=== PATIENT | female | born 1985 | race Caucasian/White ===

== ENCOUNTER → 2021-10-28 09:55 | Outpatient (CLI) | payer OTHER, SELFPAY ==
--- NOTE | ~2021-10-28 | US_ITS ---
EXAMINATION: US pelvic complete w TV DATE: 10/28/2021 10:25 INDICATION: Excessive menstruation. Heavy periods. Pain and cramping. Comparison:No prior studies for comparison. TECHNIQUE: Multiple transabdominal and endovaginal sonographic images of the pelvis performed. FINDINGS: The uterus measures 8.8 x 4.7 x 5.7 cm. There is a uterine fibroid measuring 1.9 x 2.1 x 1. 6 cm. The endometrial complex measures 9 mm. The right ovary measures 4.9 x 3.3 x 4.3 cm and the left ovary measures 4.5 x 2.9 x 4 cm. In the left ovary there is a 3.3 cm cyst. In the right ovary there is a 3.2 cm hemorrhagic cyst.. Normal doppler signal in both ovaries. There is no free fluid in the pelvis. There are no abnormal masses seen on either side. IMPRESSION: 1. Hemorrhagic cyst of the right ovary measuring 3.2 cm maximum dimension. 2: Simple cyst of the right ovary measuring 3.2 cm. 3: Uterine fibroid measuring 2.1 cm maximum dimension. Reviewed, dictated and finalized at location A.
== END ==
PROVIDERS: PCP Family Medicine Sports Medicine; Visit Provider Nurse Practitioner
DX: N92.0 Excessive and frequent menstruation with regular cycle (principal); N83.201 Unspecified ovarian cyst, right side; D25.9 Leiomyoma of uterus, unspecified
CPT/HCPCS: 76830; 76856

== ENCOUNTER 2022-04-25 00:34 | Day surgery (SDC) | payer OTHER, SELFPAY ==
[2022-04-12 14:06] VITALS: BMI 21.3
--- NOTE | 2022-04-12 14:09 | SUR.PREOP ---
Report to the Outpatient Waiting Room, entrance under the green pavilion located off [facility], at time 1030 on date 04/25/22. Planned Procedure Time: 1230. Time changes happen often and if your time is changed the preop area will call you the afternoon before. - You and your visitor will be asked to self-screen and do not enter if you have any COVID symptoms. - Only one visitor is requested with a max of two and NO children visitors are allowed at this time. - The patient visitor may be requested to leave or wait in car when not with patient due to distancing restrictions. - A mask is optional within the hospital at this time. Patients may have clear liquids (water, carbonated beverages, clear teas, apple juice) until 3 hours prior to surgery with a maximum of 20 ounces. - No food from midnight until time of surgery 20 OUNCES BEFORE 0930 AM - Infants may have breast milk until 4 hours before surgery, formula 6 hours prior to surgery. - Children will be allowed to drink immediately following surgery. If applicable, please bring a bottle or sippy cup to assist with drinking. Juice, water, soda, and popsicles are readily available. For infants on formula, please bring formula the day of surgery. Pacifiers are allowed. Take the following medications with a SIP of water the morning of surgery: N/A DO NOT STOP ANY OF YOUR OTHER PRESCRIPTION MEDICATIONS PRIOR TO SURGERY ?EXCEPT THE FOLLOWING Medications to discontinue per physician MULTIVITAMIN FOR 3 DAYS PRIOR Date to take last dose Please no make-up, nail italian, hairspray, perfume, deodorant, or body powder the day of surgery. No jewelry (including any body piercings) or valuables the day of surgery, leave them at home. Please take a shower or bath the night before, or the morning of, surgery with an antibacterial soap. Wear comfortable, loose fitting clothing. Children are encouraged to wear pajamas. - Jewelry must be removed prior to entering the operating room. Rings and piercings that are not removed may be cut off. - The hospital will not accept responsibility for valuables. - Please leave all valuables, including medications, at home the day of surgery. If you are going home after surgery, a licensed winch driver must drive you home. - NO public transportation without another adult if you receive anesthesia. - We recommend that an adult stay with you for 24 hours following discharge. - We also recommend that you do not drive, make important decision, drink alcoholic beverages, or take any drugs that were not prescribed by your health care provider for at least 24 hours after your discharge time. For Pediatric surgeries, we recommend two adults accompany the child home. Follow any additional instructions given to you from your surgeon. If you or anyone in your household have experienced Covid symptoms in the past week, please notify your surgeon or the nurse liaison at the phone number below for possible testing. Telephone instructions given to PATIENT and asked if any additional questions and then verbalized understanding. Patient advised to call surgeon office or pre surgery nurse liaison [phone] if any additional questions.
--- NOTE | 2022-04-25 07:32 | WPDHPUPDATE1 ---
History and Physical Update Update Date/Time: 04/25/22 07:32 History and Physical has been reviewed, including an updated exam of the patient. There are NO changes in the patient's condition. Risks, benefits, and alternatives have been discussed and questions answered. Patient agrees to proceed with procedure.
--- NOTE | 2022-04-25 07:32 | PM.HPGS ---
History of Present Illness History of Present Illness Consent: Risks, benefits, and alternatives have been discussed and questions answered. Patient agrees to proceed with procedure. Chief complaint: Menorrhagia, Fibroids Narrative: Bina Garcia is a 37 year old female with worsening menstrual cycles. It was recommended to proceed with D&C hysteroscopy for further evaluation. Patient with known history of fibroids and prior hysteroscopic myomectomy. The risks of infection, bleeding, perforation, and fluid imbalance over reviewed. Possible pathology was discussed. The patient is voicing understanding and agrees to proceed. Review of Systems Review of Systems: not repeated day of surgery; patient states no changes in status PMF[facility] Past Medical History Medical History (Updated 04/25/22 @ 08:00 by Marlyn Brennan MD) History of skin cancer 2020 on her back (normal spontaneous vaginal delivery) Conceived by in vitro fertilization Surgical History Surgical History (Updated 04/25/22 @ 07:35 by Marlyn Brennan MD) History of hysteroscopy with myomectomy, polypectomy History of laparoscopy left tube was previously removed and the right tube was noted to be blocked on laparoscopy Social History Social History Drinks per week: 2 Substance use type: marijuana Living arrangements: with family Meds Home Medications and Allergies Home Medications Medication Instructions Recorded Confirmed Type multivitamin 1 tablet PO DAILY 04/12/22 04/12/22 History valacyclovir 500 mg tablet 500 mg PO DAILY 04/12/22 04/12/22 History Allergies Allergy/AdvReac Type Severity Reaction Status Date / Time No Known Allergies Allergy Unverified 08/03/15 15:43 Exam Const: General: healthy appearing and alert Orientation/consciousness: patient oriented x3 Resp: Effort & Inspection: normal respiratory effort GI: GI Palp: Yes Soft to palpation, No Tenderness to palpation present (GI) and No Palpable mass present : External Female Exam: normal external appearance Speculum Exam - Vagina: normal appearance of the vagina and normal vaginal discharge Speculum Exam - Cervix: normal appearance of the cervix Bimanual exam- vagina & uterus: uterine size normal and consistency normal Bimanual Exam- Adnexa, other: normal adnexae and No adnexal tenderness Neuro: General: patient oriented x3 Assessment and Plan Assessment and plan (1) Menorrhagia: Code(s): N92.0 - Excessive and frequent menstruation with regular cycle Status: Acute Assessment and Plan: plan to proceed with D&C hysteroscopy possible myomectomy
[2022-04-25] MEDS: ACETAMINOPHEN 500 MG TABLET 1000 MG PO (10:45)
[2022-04-25] MEDS: LACTATED RINGERS 1,000 ML 30 ML IV CONT (10:45)
[2022-04-25 11:00] VITALS: BP 125/73; PULSE 73; RESP 16; TEMP 36.4; O2SAT 100
--- NOTE | 2022-04-25 11:15 | P.PNAN_ITS ---
Anes - Initial Pre Proc Eval Procedure: Operation Date: 04/25/22 12:30 Proposed Procedures p Hysteroscopy Dilation and Curettage with Possible Myosure - Marlyn Brennan MD Date/Time: 04/25/22 11:15 Surgeon: Marlyn Brennan MD Pre Op Diagnosis: Menorrhagia, Fibroids Patient Data Age: 37 Gender: F Height: 1.68 m Weight: 62.1 kg Last Vital Signs Temp 36.4 C L 04/25/22 11:00 Pulse 73 04/25/22 11:00 Resp 16 04/25/22 11:00 BP 125/73 04/25/22 11:00 Pulse Ox 100 04/25/22 11:00 O2 Del Method Room Air 04/25/22 11:00 Allergies Allergy/AdvReac Type Severity Reaction Status Date / Time No Known Allergies Allergy Unverified 04/25/22 11:08 Home Medications Medication Instructions Recorded Confirmed Type multivitamin 1 tablet PO DAILY 04/12/22 04/25/22 History valacyclovir 500 mg tablet 500 mg PO DAILY 04/12/22 04/25/22 History Patient hx anesthesia problems: none Family hx anesthesia problems: none Results Review: All pre-operative results and documents have been reviewed as part of the pre- operative evaluation. [facility] Past Medical History Medical History History of skin cancer 2020 on her back (normal spontaneous vaginal delivery) Conceived by in vitro fertilization Surgical History Surgical History History of hysteroscopy with myomectomy, polypectomy History of laparoscopy left tube was previously removed and the right tube was noted to be blocked on laparoscopy Social History Social History Drinks per week: 2 Substance use type: marijuana Living arrangements: with family Anes - Eval Final PreProcedure Day of Procedure 04/25/22 11:15 Patient weight: normal Heart: regular rate and rhythm Lungs: clear to auscultation Airway: Mallampati scale class II Neurological: alert and oriented Last oral intake: >/= 8 hours ASA classification: II Emergent: no Anesthetic plan: proceed Anesthesia type and monitoring: general GIVS and standard monitoring Results Review: All pre-operative results and documents have been reviewed as part of the pre- operative evaluation. Informed Consent: The patient's anesthetic plan and its attendant risks and benefits were discussed with the patient/family/POA. Questions were solicited and answers provided to the satisfaction of the patient/family/POA.
[2022-04-25] MEDS: LIDOCAINE HCL 1% LOCAL INJ 20 ML VIAL 10 ML INFILTRATE (12:39)
--- NOTE | 2022-04-25 12:45 | P.OP_ITS ---
Procedure Note - Detailed Date of Procedure 04/25/22 Pre-op Diagnosis Menorrhagia, Fibroids Post-op Diagnosis Same Procedure Performed D and C hysteroscopy Surgeon Marlyn Brennan MD Anesthesia MAC and Local Findings uterus sounds to 8cm and appears grossly normal Description of Procedure The patient is taken to the operating room and placed under anesthesia in the dorsal lithotomy position. She was prepped and draped in the usual sterile fashion. [place] speculum was placed in the vagina and the cervix grasped on the anterior lip with a tenaculum. Cervix is injected in each quadrant with 1% lidocaine. The uterus is sounded to 8cm. The cervix is serially dilated to a 6 Hegar and the large Aveeta hysteroscope was placed. Initially it appeared as if submucosal fibroid posterior however when the pressure was increased the wall flattened out completely. The hysteroscope was removed and the sharp curette used to curette the endometrium until a good uterine cry was noted in all areas. All instruments are removed. Sponge, needle, and instrument counts are correct per the OR staff. Patient is awakened from anesthesia and taken to recovery in stable condition. Estimated Blood Loss 5 Drains No Packing No Pathology Yes ( endometrial curettings) Complications No immediate complications Condition Stable Disposition PACU
[2022-04-25 12:46] VITALS: BP 114/77; PULSE 67; RESP 14; O2SAT 99
[2022-04-25] MEDS: oxyCODONE HCL (*CRX) 5 MG TAB IR PO (13:12)
[2022-04-25 13:15] VITALS: BP 130/83; PULSE 66; RESP 14
== END 2022-04-25 13:42 | disposition home or self-care (01) ==
PROVIDERS: PCP Family Medicine Sports Medicine; Visit Provider Obstetrics & Gynecology Gynecology
PROC: 0U5B8ZZ Destruction of Endometrium, Via Natural or Artificial Opening Endoscopic (ICD-10-PCS; CPT 58563; principal; 2022-04-25 12:30)
DX: N92.0 Excessive and frequent menstruation with regular cycle (principal); F12.90 Cannabis use, unspecified, uncomplicated
CPT/HCPCS: 58558; 88305; A9270; J2250; J2704; J3010; J7120

== ENCOUNTER 2023-06-05 12:09 | Outpatient (CLI) | payer OTHER, SELFPAY ==
--- NOTE | ~2023-06-05 | MM_ITS ---
EXAMINATION: MM screening sunni BI w ria HISTORY: Screening mammogram TECHNIQUE: Craniocaudal and mediolateral oblique 3-D tomosynthesis images were obtained and synthetic 2-D images were generated. CAD analysis was submitted and interpreted. COMPARISON: No prior mammogram is available for comparison at this institution. BREAST PARENCHYMAL COMPOSITION: The breasts are heterogeneously dense, which may obscure small masses . FINDINGS: There is asymmetry in the upper right breast on MLO view. Since this is a baseline examinat ion with no prior examinations for comparison, diagnostic right mammogram is recommended, and ultraso und if required. Otherwise no suspicious mass, architectural distortion, malignant calcification, skin thickening or r etraction of either breast is evident. IMPRESSION: 1. Asymmetry in upper right breast on this baseline screening MLO view 2. Recommend diagnostic right mammogram, with ultrasound if required BI-RADS Category 0: Incomplete: Needs additional imaging evaluation. Reviewed, dictated and finalized at location A.
== END 2023-06-05 12:10 | disposition home or self-care (01) ==
PROVIDERS: PCP Family Medicine Sports Medicine; Visit Provider Obstetrics & Gynecology Gynecology
DX: Z12.31 Encounter for screening mammogram for malignant neoplasm of breast (principal); R92.8 Other abnormal and inconclusive findings on diagnostic imaging of breast
CPT/HCPCS: 77063; 77067

== ENCOUNTER 2023-06-15 09:18 | Outpatient (CLI) | payer OTHER, SELFPAY ==
--- NOTE | ~2023-06-15 | MM_ITS ---
EXAMINATION: MM diagnostic sunni RT w ria HISTORY: Upper right breast asymmetry TECHNIQUE: 3-D tomosynovitis compression view of the upper right breast was performed and synthetic 2 -D images were generated. CAD analysis was submitted and interpreted. COMPARISON: 06/05/2023 FINDINGS: The asymmetry at the upper right breast effaces with spot compression. No persistent mass l esion or distortion seen. No suspicious microcalcification. IMPRESSION: No mammographic evidence of malignancy. BI-RADS Category 1: Negative Reviewed, dictated and finalized at location M.
== END 2023-06-15 09:19 | disposition home or self-care (01) ==
LOC: CHSIMG 09:22
PROVIDERS: PCP Family Medicine Sports Medicine; Visit Provider Obstetrics & Gynecology Gynecology
DX: R92.8 Other abnormal and inconclusive findings on diagnostic imaging of breast (principal)
CPT/HCPCS: 77061; 77065; G0279

== ENCOUNTER 2023-11-15 10:20 | Outpatient (CLI) | payer OTHER, SELFPAY ==
--- NOTE | ~2023-11-15 | US_ITS ---
Pelvic ultrasound. Clinical History: Excessive and frequent menstruation Technique: Realtime transabdominal scanning of the pelvis was performed. Color flow Doppler and Doppl er spectral analysis were performed. Findings: The uterus is anteverted. The endometrial stripe has a thickness of 6 mm. Probable ill-def ined intramural fibroid measures 1.9 cm in maximum diameter on the left side. The right ovary measures 2.5 x 2.2 x 1.1 cm. No significant right ovarian or adnexal mass is seen. The left ovary measures 4.6 x 3.1 x 4.6 cm. Simple left ovarian cyst measures 3.4 cm in diameter. There is no evidence of free fluid in the cul de sac. Impression: 3.4 cm simple left ovarian cyst. 1.9 cm uterine fibroid. Reviewed, dictated and finalized at [facility]. Impression: 3.4 cm simple left ovarian cyst. 1.9 cm uterine fibroid.
== END 2023-11-15 10:21 | disposition home or self-care (01) ==
PROVIDERS: PCP Family Medicine Sports Medicine; Visit Provider Nurse Practitioner Women's Health
DX: N83.202 Unspecified ovarian cyst, left side (principal); D25.9 Leiomyoma of uterus, unspecified; N92.0 Excessive and frequent menstruation with regular cycle
CPT/HCPCS: 76856

== ENCOUNTER 2024-01-22 00:21 | Day surgery (SDC) | payer OTHER, SELFPAY ==
[2024-01-16 13:41] VITALS: BMI 20.9
--- NOTE | 2024-01-16 13:48 | PC.NURSE ---
Report to the Outpatient Waiting Room, entrance under the green pavilion located off [facility], at time _0715_ on date _[id number]_. Planned Procedure Time: _0915_.? Time changes happen often and if your time is changed the preop area will call you the afternoon before. - You and your visitor will be asked to self-screen and do not enter if you have any COVID symptoms. Please call surgeon if you need to reschedule. - A mask is optional within the hospital at this time. Patients may have clear liquids (water, carbonated beverages, clear teas, apple juice) until 3 hours prior to surgery with a maximum of 20 ounces. - No food from midnight until time of surgery and no smoking. This includes no chewing gum, candy or mints. Take only the following medications with a SIP of water on the morning of surgery: __None DO NOT STOP ANY OF YOUR OTHER PRESCRIPTION MEDICATIONS PRIOR TO SURGERY EXCEPT THE FOLLOWING Medications to discontinue per physician ____Vitamins and supplements Date to take last gres____[id number]____ Please no make-up, nail italian, hairspray, perfume, deodorant, or body powder the day of surgery.? No jewelry (including any body piercings) or valuables the day of surgery, leave them at home.? Please take a shower or bath the night before, or the morning of, surgery with an antibacterial soap.? Wear comfortable, loose fitting clothing.? . - Jewelry must be removed prior to entering the operating room.? Rings and piercings that are not removed may be cut off. - The hospital will not accept responsibility for valuables.? - Please leave all valuables, including medications, at home the day of surgery. If you are going home after surgery, a licensed medical delivery driver must drive you home.? - NO public transportation without another adult if you receive anesthesia. - We recommend that an adult stay with you for 24 hours following discharge. - We also recommend that you do not drive, make important decision, drink alcoholic beverages, or take any drugs that were not prescribed by your health care provider for at least 24 hours after your discharge time. Follow any additional instructions given to you from your surgeon. Telephone instructions given to __Bina__and asked if any additional questions and then verbalized understanding. Patient advised to call surgeon office or pre surgery nurse liaison [phone] if any additional questions.
--- NOTE | 2024-01-22 07:33 | P.HP_ITS ---
History of Present Illness History of Present Illness Consent: Risks, benefits, and alternatives have been discussed and questions answered. Patient agrees to proceed with procedure. Chief complaint: menorrhagia Narrative: Bina Garcia is a 38 year old female with menorrhagia. Patient underwent D&C hysteroscopy April of 2022 that was benign. Patient continues to have heavy cycles. Patient declined medical treatment. Pelvic ultrasound showed a small fibroid but from prior hysteroscopy was not submucosal. Repeat endometrial biopsy was performed and benign. Patient with a distant history hysteroscopic myomectomy and polypectomy prior to her 2016 . Patient has elected to proceed with Riri endometrial ablation. Risks of infection, bleeding, perforation, and failure are reviewed. Expectations postoperatively are reviewed. Patient voices understanding and agrees to proceed. Review of Systems Review of Systems: not repeated day of surgery; patient states no changes in status [facility] Past Medical History Medical History History of skin cancer 2020 on her back (normal spontaneous vaginal delivery) Conceived by in vitro fertilization Surgical History Surgical History History of hysteroscopy with myomectomy, polypectomy History of laparoscopy left tube was previously removed and the right tube was noted to be blocked on laparoscopy Social History Social History Years smoked: 15 Smoking status: Former smoker Tobacco type: cigarettes Smoking end date: 01/15/14 Alcohol intake: current Drinks per week: 12 Substance use type: marijuana Other substance usage details: Daily Living arrangements: with family Spiritual care concerns: No Meds Home Medications and Allergies Home Medications ?Medication ?Instructions ?Recorded ?Confirmed ?Type multivitamin 1 tablet PO DAILY 04/12/22 01/16/24 History valacyclovir 500 mg tablet 500 mg PO DAILY 04/12/22 01/16/24 History flaxseed oil 1,000 mg capsule 1,000 mg PO DAILY 01/16/24 01/16/24 History Allergies Allergy/AdvReac Type Severity Reaction Status Date / Time No Known Allergies Allergy Unverified 01/16/24 13:38 Exam Const: General: healthy appearing and alert Orientation/consciousness: patient oriented x3 Resp: Effort & Inspection: normal respiratory effort GI: GI Palp: Yes Soft to palpation, No Tenderness to palpation present (GI) and No Palpable mass present : External Female Exam: normal external appearance Speculum Exam - Vagina: normal appearance of the vagina and normal vaginal discharge Speculum Exam - Cervix: normal appearance of the cervix Bimanual exam- vagina & uterus: uterine size normal and consistency normal Bimanual Exam- Adnexa, other: normal adnexae and No adnexal tenderness Neuro: General: patient oriented x3 Assessment and Plan Assessment and plan (1) Menorrhagia: Code(s): N92.0 - Excessive and frequent menstruation with regular cycle Status: Acute Assessment and Plan: Plan to proceed with Riri endometrial ablation
--- NOTE | 2024-01-22 07:33 | WPDHPUPDATE1 ---
History and Physical Update Update Date/Time: 01/22/24 07:33 History and Physical has been reviewed, including an updated exam of the patient. There are NO changes in the patient's condition. Risks, benefits, and alternatives have been discussed and questions answered. Patient agrees to proceed with procedure.
[2024-01-22 07:45] VITALS: BP 141/75; PULSE 65; RESP 18; TEMP 36.2; O2SAT 100
--- NOTE | 2024-01-22 07:48 | P.PNAN_ITS ---
Anes - Initial Pre Proc Eval Procedure: Operation Date: 01/22/24 09:15 Proposed Procedures p Hysteroscopy, Riri Endometrial Ablation - Marlyn Brennan MD Date/Time: 01/22/24 07:48 Surgeon: Marlyn Brennan MD Pre Op Diagnosis: menorrhagia Patient Data Age: 38 Gender: F Height: 1.68 m Weight: 59 kg Allergies Allergy/AdvReac Type Severity Reaction Status Date / Time No Known Allergies Allergy Unverified 01/16/24 13:38 Home Medications ?Medication ?Instructions ?Recorded ?Confirmed ?Type multivitamin 1 tablet PO DAILY 04/12/22 01/16/24 History valacyclovir 500 mg tablet 500 mg PO DAILY 04/12/22 01/16/24 History flaxseed oil 1,000 mg capsule 1,000 mg PO DAILY 01/16/24 01/16/24 History Patient hx anesthesia problems: none Family hx anesthesia problems: none Results Review: All pre-operative results and documents have been reviewed as part of the pre- operative evaluation. [facility] Past Medical History Medical History History of skin cancer 2020 on her back (normal spontaneous vaginal delivery) Conceived by in vitro fertilization Surgical History Surgical History History of hysteroscopy with myomectomy, polypectomy History of laparoscopy left tube was previously removed and the right tube was noted to be blocked on laparoscopy Social History Social History (Updated 01/22/24 @ 07:48 by Raymond Chavez DO) Years smoked: 15 Smoking status: Former smoker Tobacco type: cigarettes Smoking end date: 01/15/14 Alcohol intake: current Drinks per week: 12 Alcohol use details: 2-3 most days Substance use type: marijuana Other substance usage details: Daily Living arrangements: with family Spiritual care concerns: No Anes - Eval Final PreProcedure Day of Procedure 01/22/24 07:48 Patient weight: normal Heart: regular rate and rhythm Lungs: clear to auscultation and normal air movement Airway: Mallampati scale class II Neurological: alert and oriented Last oral intake: >/= 8 hours ASA classification: III Emergent: no Anesthetic plan: proceed Anesthesia type and monitoring: general GIVS and standard monitoring Results Review: All pre-operative results and documents have been reviewed as part of the pre- operative evaluation. Informed Consent: The patient's anesthetic plan and its attendant risks and benefits were discussed with the patient/family/POA. Questions were solicited and answers provided to the satisfaction of the patient/family/POA.
[2024-01-22] MEDS: LACTATED RINGERS 500 ML 30 ML IV CONT (08:00)
[2024-01-22] MEDS: ACETAMINOPHEN 500 MG TABLET 1000 MG PO (08:06)
[2024-01-22 08:21] LABS: BEDSIDEPREGUCG Negative (Negative)
[2024-01-22] MEDS: LIDOCAINE 1% LOCAL INJ 10 ML VIAL INFILTRATE (09:39)
[2024-01-22 09:52] VITALS: BP 112/77; PULSE 78; RESP 16; O2SAT 99
[2024-01-22] MEDS: LACTATED RINGERS 1,000 ML 30 ML IV CONT (09:52)
--- NOTE | 2024-01-22 09:54 | W.PM.PROC2 ---
Procedure Note - Detailed Date of Procedure 01/22/24 Pre-op Diagnosis menorrhagia Post-op Diagnosis Same Procedure Performed Riri endometrial ablation Surgeon Marlyn Brennan MD Anesthesia MAC and Local Findings Uterus is 7cm and appears grossly normal Description of Procedure The patient was taken the operating room and placed under anesthesia in the dorsal lithotomy position. She was prepped draped in usual sterile fashion. [place] speculum was placed in the vagina and the cervix grasped on the anterior with a tenaculum. The uterus is sounded to 7cm. The hysteroscope was placed and with no abnormalities found the Riri device is opened. The cervix was serially dilated to an 8 Hegar. The Riri device is opened and placed. It is set at 4cm. The cavity assessment passed on the 1st attempt and the treatment cycle lasted the full 2minutes. The Riri device is removed. The hysteroscope replaced with a good ablation effect. The patient was awakened from anesthesia and taken to recovery in stable condition. Sponge, needle, and instrument counts are correct per the OR staff. Drains No Packing No Pathology None sent Complications No immediate complications Condition Stable Disposition PACU
[2024-01-22 10:22] VITALS: BP 129/60; PULSE 64; RESP 16
[2024-01-22] MEDS: oxyCODONE HCL (*CRX) 5 MG TAB IR PO (10:30)
[2024-01-22 10:52] VITALS: BP 122/78; PULSE 60; RESP 16
[2024-01-22 11:15] VITALS: BP 121/82; PULSE 58; RESP 16
== END 2024-01-22 11:16 | disposition home or self-care (01) ==
PROVIDERS: PCP Family Medicine Sports Medicine; Visit Provider Obstetrics & Gynecology Gynecology
PROC: 0U5B8ZZ Destruction of Endometrium, Via Natural or Artificial Opening Endoscopic (ICD-10-PCS; CPT 58563; principal; 2024-01-22 09:15)
DX: N92.0 Excessive and frequent menstruation with regular cycle (principal); Z87.891 Personal history of nicotine dependence; F12.90 Cannabis use, unspecified, uncomplicated
CPT/HCPCS: 58563; A9270; J2003; J2250; J2704; J3010; J7120